=== PATIENT | female | born 1940 | race African-American/Black ===

== ENCOUNTER 2018-09-14 03:13 | Emergency (ER) | payer OTHER, BC ==
--- NOTE | 2018-09-14 03:48 | PDOC ---
History of Present Illness - General Chief Complaint: Blood Pressure Problem Stated Complaint: BLOOD PRESSURE PROBLEM Time Seen by Provider: 09/14/18 03:24 History Source: Patient Exam Limitations: No Limitations - History of Present Illness Initial Comments: 09/14/18 03:46 78F hx of htn, excema, panic attack, palpitations, presents with cc of hypertension. Pt had a mild headache and checked her bp was noted to be elevated so coame for evaluation. pt ntoes her headache was diffuse, and pressure like, was constant for about an hour and has since resolved. pt states when she feels this way, she knows its her bp. pt endorses some palitations when she was trying to sleep, but non currently. states she frequently feels these palpitatiosn at sleep. never has these when she is ambulating/exerting herself. no associated cp sob, n/v, diaphoresis, vision changes, numbnes/ tingling/weakness, neck pain, abd pain, back pain. PMD Dr Alonso Past History - Past Medical History Allergies/Adverse Reactions: Allergies Allergy/AdvReac Type Severity Reaction Status Date / Time No Known Allergies Allergy Verified 09/14/18 03:33 - Suicide/Smoking/Psychosocial Hx Smoking History: Never smoked Have you smoked in the past 12 months: No Information on smoking cessation initiated: No Hx Alcohol Use: No Drug/Substance Use Hx: No Review of Systems - Review of Systems Able to Perform ROS?: Yes Comments:: 09/14/18 04:15 Constitutional - no reported Fever, Chills, HEENT: no reported vision changes, sore throat Respiratory: no reported cough, sob, hemoptysis Cardiac: +palpitations (resolved) no reported chest pain, light headedness, leg swelling Abd/GI: no reported abd pain, nausea, vomiting, blood per rectum, melena, diarrhea : no reported dysuria, frequency, discharge Musculskelatal - no reported back pain, joint swelling skin - no reported bruising, erythema, rash neurological: + headache (resolved) no reported numbness, focal weakness, tingling, ataxia, hematologic: no reported easy bruising, easy bleeding *Physical Exam - Vital Signs Last Vital Signs Temp Pulse Resp BP Pulse Ox 97.1 F L 80 17 198/108 H 100 09/14/18 03:15 09/14/18 03:15 09/14/18 03:15 09/14/18 03:15 09/14/18 03:15 - Physical Exam Comments: 09/14/18 04:16 GENERAL: The patient is awake, alert, and fully oriented, Nontoxic - in no acute distress. HEAD: Normocephalic, atraumatic. EYES: extraocular movements intact, sclera anicteric, conjunctiva clear. ENT: Normal voice, Moist mucous membranes. NECK: Normal range of motion, supple LUNGS: Breath sounds equal, clear to auscultation bilaterally. No wheezes, no rhonchi, no rales. HEART: Regular rate and rhythm, normal S1 and S2 without murmur, rub or gallop. ABDOMEN: Soft, nontender, No guarding, no rebound. . No CVA tenderness EXTREMITIES: Normal range of motion, +1edema. No calf tenderness NEUROLOGICAL: No facial assymetry, Normal speech, PSYCH: Normal mood, normal affect. SKIN: Warm, Dry, normal turgor, Moderate Sedation - Procedure Monitoring Vital Signs: Procedure Monitoring Vital Signs Temperature 97.1 F L 09/14/18 03:15 Pulse Rate 80 09/14/18 03:15 Respiratory Rate 17 09/14/18 03:15 Blood Pressure 198/108 H 09/14/18 03:15 O2 Sat by Pulse Oximetry (%) 100 09/14/18 03:15 ED Treatment Course - LABORATORY CBC & Chemistry Diagram: 09/14/18 04:12 09/14/18 04:12 Medical Decision Making - Medical Decision Making 09/14/18 04:17 78-year-old female history of hypertension presenting with complaint of hypertension. Only had mild head pressure as well as palpitations but she was sleeping but is since resolved On exam the patient is no acute distress, her vitals are noted for hypertension Will check some basic labs will repeat her blood pressure persistently elevated will give the patient another extra dose of her medications Will reassess 09/14/18 05:45 pts labs reviewed unremarkable bp is significantly improved - 158/87 her headache has resolved will dc with pmd fu return precautions were discussed I discussed the physical exam findings, ancillary test results and final diagnoses with the patient. I answered all of the patient's questions. The patient was satisfied with the care received and felt comfortable with the discharge plan and treatment plan. The patient will call their primary care physician within 24 hours to arrange follow-up and will return to the Emergency Department with any new, persistent or worsening symptoms. *DC/Admit/Observation/Transfer Diagnosis at time of Disposition: Hypertension Qualifiers: Hypertension type: essential hypertension Qualified Code(s): I10 - Essential ( primary) hypertension - Discharge Dispostion Disposition: HOME Condition at time of disposition: Improved Decision to Admit order: No - Referrals Referrals: Donny Alonso MD [Primary Care Provider] - - Patient Instructions Printed Discharge Instructions: DI for High Blood Pressure Additional Instructions: Return to the emergency department immediately with ANY new, persistent or worsening symptoms. You MUST call and follow up with your doctor tomorrow for further evaluation of your symptoms. Results were discussed with you. Please make sure your doctor reviews the results of your emergency evaluation. If you had any xrays during your visit, it was read preliminarily by myself, a Radiologist will review it and if there are any additional findings we will call you. Print Language: PASHTO - Post Discharge Activity
[2018-09-14 03:52] VITALS: TEMP 97.1; BMI 24.9
[2018-09-14 03:59] VITALS: PULSE 73
[2018-09-14 04:28] LABS: BASO % 0.8 % (0-2.0); EOS % 1.5 % (0-4.5); HEMATOCRIT 37.8 % (32.4-45.2); LYMPH % 14.7 % (8-40); MCH 30.3 pg (25.7-33.7); MCHC 34.5 g/dl (32.0-36.0); MEAN CELL VOLUME 87.9 fl (80-96); MEAN PLT VOLUME 9.1 fl (7.5-11.1); MONO % 6.4 % (3.8-10.2); NEUT % 76.6 % (42.8-82.8); PLATELET COUNT 227 K/MM3 (134-434); RDW 14.6 % (11.6-15.6); WHITE BLOOD COUNT 4.3 K/mm3 (4.0-10.0)
[2018-09-14 04:33] LABS: URINE APPEARANCE CLEAR; URINE BILIRUBIN NEGATIVE (<2.0 mg/dL); URINE COLOR STRAW; URINE GLUCOSE (UA) NEGATIVE (NEGATIVE); URINE KETONE NEGATIVE (NEGATIVE); URINE LEUK ESTERASE TRACE (NEGATIVE); URINE NITRITE NEGATIVE (NEGATIVE); URINE PROTEIN NEGATIVE (NEGATIVE); URINE UROBILINOGEN NEGATIVE mg/dL (0.2-1.0)
[2018-09-14 04:47] LABS: URINE BACTERIA RARE /hpf (NONE SEEN); URINE HYALINE CAST 1 /lpf
[2018-09-14 05:00] LABS: ALBUMIN 3.7 g/dl (3.4-5.0); ALK PHOS 60 U/L (45-117); ANION GAP 8 MMOL/L (8-16); BILIRUBIN,TOTAL 0.5 mg/dL (0.2-1); BLOOD UREA NITROGEN 15 mg/dL (7-18); CALCIUM 8.7 mg/dL (8.5-10.1); CHLORIDE 104 mmol/L (98-107); CO2 28 mmol/L (21-32); CREATININE 0.8 mg/dL (0.55-1.3); GLUCOSE,RANDOM 88 mg/dL (74-106); POTASSIUM 3.4 mmol/L (3.5-5.1); SGOT/AST 22 U/L (15-37); SGPT/ALT 22 U/L (13-61); SODIUM 141 mmol/L (136-145); TOT PROT 6.7 g/dl (6.4-8.2)
[2018-09-14 05:46] VITALS: BP 156/87
--- NOTE | 2018-09-14 10:12 | EKG ---
Test Reason : Blood Pressure : / mmHG Vent. Rate : 069 BPM Atrial Rate : 069 BPM P-R Int : 176 ms QRS Dur : 082 ms QT Int : 446 ms P-R-T Axes : 070 010 031 degrees QTc Int : 477 ms NORMAL SINUS RHYTHM NORMAL ECG WHEN COMPARED WITH ECG OF 15-JAN-2009 19:48, NO SIGNIFICANT CHANGE WAS FOUND Confirmed by BEATRIZ HARMON MD ([id number]) on 09/14/2018 10:11:50 AM Referred By: Confirmed By:BEATRIZ HARMON MD
== END 2018-09-14 06:09 | disposition home or self-care (01) ==
LOC: JER 03:13
DX: I10 Essential (primary) hypertension (principal)
CPT/HCPCS: 36415; 80053; 81003; 81015; 85025; 93005; 93010; 99283-25

== ENCOUNTER 2019-01-06 11:42 | Inpatient (IN) | payer OTHER, BC ==
[2019-01-06] MEDS ORDERED: SODIUM CHLORIDE 1,000 ML IV SCH (12:15)
[2019-01-06 12:19] VITALS: BMI 24.3
--- NOTE | 2019-01-06 12:31 | PDOC ---
History of Present Illness - General Chief Complaint: Weakness Stated Complaint: WEAKNESS Time Seen by Provider: 01/06/19 12:13 History Source: Patient Exam Limitations: No Limitations - History of Present Illness Initial Comments: 01/06/19 12:30 Patient is 78F with history of htn here today complaining of right arm weakness that onset at 10am today. Initially stated that this started 3 days to 1 week ago, then stated that this weakness has been going off and on for the past week , suddenly starting at 10am today in the grocery store. Denies chest pain, shortness of breath, palpitations, fevers, chills, nausea, vomiting, and abdominal pain. Denies headache. Denies history of afib, prior strokes, prior heart issues, taking ac. NIH Stroke Scale - Last Known Well Date/Time & Onset Date Last Known Well: 01/06/19 Time Last Known Well: 10:00 - Initial Evaluation Level of consciousness: Alert Ask patient the month and their age: Answers both correctly Ask patient to open & close eyes; make fist and let go: Obeys both correctly Best gaze (horizontal eye movement): Normal Visual field testing: No visual field loss Facial paresis (Show teeth/raise eyebrows/close eyes tight): Minor paralysis ( flattened nasolabial fold, asymmetry on smiling) Motor Function: Left Arm: Normal Motor Function: Right Arm: Normal (extends arm 90 (or 45) degrees for 10 seconds without drift Motor Function: Left Leg: Normal (extends leg 30 degrees for 5 seconds without drift) Motor Function: Right Leg: Normal (extends leg 30 degrees for 5 seconds without drift) Limb Ataxia: No ataxia Sensory(Use pinprick test arms,legs,trunk,face/side to side): Normal Best language (Describe picture, name items, read sentences): No Aphasia Dysarthria (read several words): Normal articulation Extinction and Inattention: No abnormality - Total Score NIH Stroke Scale Score: 1 Past History - Past Medical History Allergies/Adverse Reactions: Allergies Allergy/AdvReac Type Severity Reaction Status Date / Time No Known Allergies Allergy Verified 01/06/19 13:24 Home Medications: Ambulatory Orders Metoprolol Succinate 12.5 mg PO DAILY 09/14/18 Quinapril HCl 10 mg PO DAILY 09/14/18 Triamterene/Hydrochlorothiazid [Triamterene-Hctz 37.5-25 mg Cp] 1 each PO AM COPD: No HTN: Yes - Immunization History Immunization Up to Date: Yes - Suicide/Smoking/Psychosocial Hx Smoking History: Never smoked Have you smoked in the past 12 months: No Hx Alcohol Use: No Drug/Substance Use Hx: No Substance Use Type: None Review of Systems - Review of Systems Able to Perform ROS?: Yes Comments:: 01/06/19 12:46 GENERAL/CONSTITUTIONAL: No fever or chills. + R arm weakness. HEAD, EYES, EARS, NOSE AND THROAT: No change in vision. No sore throat. CARDIOVASCULAR: No chest pain or shortness of breath RESPIRATORY: No cough, wheezing, or hemoptysis. GASTROINTESTINAL: No nausea, vomiting, diarrhea or constipation. GENITOURINARY: No dysuria, frequency, or change in urination. MUSCULOSKELETAL: No joint or muscle swelling or pain. No neck or back pain. SKIN: No rash NEUROLOGIC: No headache, vertigo, loss of consciousness, or change in strength/ sensation. HEMATOLOGIC/LYMPHATIC: No anemia, easy bleeding, or history of blood clots. ALLERGIC/IMMUNOLOGIC: No hives or skin allergy. *Physical Exam - Vital Signs Last Vital Signs Temp Pulse Resp BP Pulse Ox 97.5 F L 78 16 151/62 96 01/06/19 12:00 01/06/19 12:00 01/06/19 12:00 01/06/19 12:00 01/06/19 12:00 - Physical Exam Comments: 01/06/19 12:47 GENERAL: Awake, alert, and fully oriented, in no acute distress HEAD: No signs of trauma, normocephalic, atraumatic EYES: PERRLA, EOMI, sclera anicteric, conjunctiva clear ENT: Auricles normal inspection, hearing grossly normal, nares patent, oropharynx clear without exudates. Moist mucosa NECK: Normal ROM, supple, no lymphadenopathy, JVD, or masses LUNGS: No distress, speaks full sentences, clear to auscultation bilaterally HEART: Regular rate and rhythm, normal S1 and S2, no murmurs, rubs or gallops, peripheral pulses normal and equal bilaterally. ABDOMEN: Soft, nontender, normoactive bowel sounds. No guarding, no rebound. No masses EXTREMITIES: Normal inspection, Normal range of motion, no edema. No clubbing or cyanosis. NEUROLOGICAL: Mild left sided facial droop, otherwise Cranial nerves II through XII grossly intact. Normal speech, no focal sensorimotor deficits, NIHSS 1 SKIN: Warm, Dry, normal turgor, no rashes or lesions noted. Moderate Sedation - Procedure Monitoring Vital Signs: Procedure Monitoring Vital Signs Temperature 97.5 F L 01/06/19 12:00 Pulse Rate 78 01/06/19 12:00 Respiratory Rate 16 01/06/19 12:00 Blood Pressure 151/62 01/06/19 12:00 O2 Sat by Pulse Oximetry (%) 96 01/06/19 12:00 ED Treatment Course - LABORATORY CBC & Chemistry Diagram: 01/06/19 13:14 01/06/19 13:14 - RADIOLOGY Radiology Studies Ordered: Category Date Time Status HEAD CT (STROKE) [CT] Stat CT Scan 01/06/19 12:25 Ordered CHEST X-RAY PORTABLE* [RAD] Stat Radiology 01/06/19 12:14 Ordered Medical Decision Making - Medical Decision Making 01/06/19 12:29 Delay in stroke activation due to confusion in history. Patient stated initially that her arm had been feeling weak for the past 3 days to 1 week. Upon later questioning, patient states that she felt normal until 10am today at the store, when her R arm felt weak. Code mancilla activated at this time. NIHSS 1 for slight facial droop. 01/06/19 12:47 Patient is 78F with history of HTN here today with R arm weakness and L facial droop. Vitals normal and stable. Concerned that patient has had multiple TIAs. Code mancilla initiated after initial confusion in history above. Will do stroke workup, admit to tele. No tpa at this time because of NIHSS<5 01/06/19 13:05 CT head shows possibly chronic infarct, no bleed. EKG shows NSR with rate of 73. No st elevations/depressions. Normal axis. Normal intervals. No significant t wave abnormalities. CXR shows no infiltrate, no acute process. 01/06/19 14:03 CBC, CMP reassuring. Trop negative. Will admit to hospitalist. 01/06/19 14:11 Case d/w Dr Odonnell Case d/w Dr Wheatley *DC/Admit/Observation/Transfer Diagnosis at time of Disposition: CVA (cerebral vascular accident) - Discharge Dispostion Condition at time of disposition: Stable Decision to Admit order: Yes - Referrals - Patient Instructions - Post Discharge Activity
--- NOTE | 2019-01-06 12:35 | PDOC ---
Attending Attestation - Resident Resident Name: Tyrone Thomas - ED Attending Attestation I have performed the following: I have examined & evaluated the patient, The case was reviewed & discussed with the resident, I agree w/resident's findings & plan, Exceptions are as noted - Medical Decision Making 01/06/19 14:02 A portion of this note was documented by scribe services under my direction. I have reviewed the details of the note, within reason, and agree with the documentation with the following case summary and management plan written by me. Patient treated in the ED. Nursing notes are reviewed and incorporated into the medical decision-making. Vital signs reviewed. Peripheral IV access obtained by the nurse, laboratory studies are drawn and sent, reviewed and interpreted by myself. Vital Signs Temp Pulse Resp BP Pulse Ox 97.5 F L 78 16 151/62 96 01/06/19 12:00 01/06/19 12:00 01/06/19 12:00 01/06/19 12:00 01/06/19 12:00 78-year-old female with past medical history of hypertension presents with right arm intermittent numbness. Patient reports that the symptoms were on and off until it worsened this morning attending. Denies weakness. Denies chest pain or shortness of breath. She reports decreased sensation to the right arm. NIH stroke scale is 1. Patient is not a TPA candidate given low and actually scale and that the symptoms have been occurring for one week. Head CT demonstrates the following: CAT scan demonstrates possible small chronic left frontal cortical/subacute cortical infarct. Chest x-ray demonstrates cardiomegaly. The CAT scan findings appear to correspond to her symptoms. Patient will need to be admitted for further neuro workup for stroke. <Todd Louis - Last Filed: 01/06/19 14:09> - HPI HPI: 01/06/19 14:14 The patient is a 78 YOF with a PMH of HTN who presents with right arm numbness that worsened this morning. Patient states the right arm numbness is intermittent and denies any associated symptoms. Denies weakness, cp, sob, N/V/C/D, urinary symptoms, diaphoresis, lightheadedness, or dizziness. Allergies: NKDA Surgeries: None reported Social Hx: No reported alcohol, drug or cigarette use. - Physicial Exam PE: 01/06/19 14:10 ADULT EXAM GENERAL: Awake, alert, and fully oriented, in no acute distress HEAD: No signs of trauma EYES: PERRLA, EOMI, sclera anicteric, conjunctiva clear ENT: Auricles normal inspection, hearing grossly normal, nares patent. Moist mucosa NECK: Normal ROM, supple, JVD, or masses LUNGS: Breath sounds equal, clear to auscultation bilaterally. No wheezes, and no crackles HEART: Regular rate and rhythm, normal S1 and S2, no murmurs, rubs or gallops ABDOMEN: Soft, nontender. No guarding, no rebound. No masses EXTREMITIES: Normal range of motion, no edema. 5/5 strength in the upper and lower extremities. (+) subjective right arm has decreased sensation. No pronator drift. NEUROLOGICAL: Cranial nerves II through XII grossly intact. Normal speech. SKIN: Warm, Dry, normal turgor, no rashes or lesions noted. <Virginia Navarrete - Last Filed: 01/06/19 14:17> Heart Score/ECG Review #1 ECG reviewed & interpreted by me at: 12:15 01/06/19 12:34 NSR 73, occasional PAC, Q wave III, T wave flat III, V2, no std/cleopatra, QTC 442 [id number], normal axis, normal intervals <Todd Louis - Last Filed: 01/06/19 14:09> NIH Stroke Scale - Last Known Well Date/Time & Onset Date Last Known Well: 12/30/18 - Initial Evaluation Level of consciousness: Alert Ask patient the month and their age: Answers both correctly Ask patient to open & close eyes; make fist and let go: Obeys both correctly Best gaze (horizontal eye movement): Normal Visual field testing: No visual field loss Facial paresis (Show teeth/raise eyebrows/close eyes tight): Normal symmetrical movement Motor Function: Left Arm: Normal Motor Function: Right Arm: Normal (extends arm 90 (or 45) degrees for 10 seconds without drift Motor Function: Left Leg: Normal (extends leg 30 degrees for 5 seconds without drift) Motor Function: Right Leg: Normal (extends leg 30 degrees for 5 seconds without drift) Limb Ataxia: No ataxia Sensory(Use pinprick test arms,legs,trunk,face/side to side): Mild to moderate decrease in sensation Best language (Describe picture, name items, read sentences): No Aphasia Dysarthria (read several words): Normal articulation Extinction and Inattention: No abnormality - Total Score NIH Stroke Scale Score: 1 <Todd Louis - Last Filed: 01/06/19 14:09>
[2019-01-06] MEDS ORDERED: ASPIRIN 325 MG TABLET PO ONE (12:50)
[2019-01-06 13:30] LABS: BASO % 0.6 % (0-2.0); EOS % 0.7 % (0-4.5); HEMATOCRIT 40.4 % (32.4-45.2); LYMPH % 15.3 % (8-40); MCH 30.6 pg (25.7-33.7); MCHC 34.5 g/dl (32.0-36.0); MEAN CELL VOLUME 88.7 fl (80-96); MEAN PLT VOLUME 8.8 fl (7.5-11.1); MONO % 11.9 % (3.8-10.2); NEUT % 71.5 % (42.8-82.8); PLATELET COUNT 238 K/MM3 (134-434); RBC 4.56 M/mm3 (3.60-5.2); RDW 14.7 % (11.6-15.6); WHITE BLOOD COUNT 3.9 K/mm3 (4.0-10.0)
[2019-01-06] MEDS ORDERED: ASPIRIN 325 MG TABLET ONE (13:50)
[2019-01-06 13:59] LABS: ALBUMIN 4.1 g/dl (3.4-5.0); ALK PHOS 62 U/L (45-117); ANION GAP 9 MMOL/L (8-16); BILIRUBIN,TOTAL 0.4 mg/dL (0.2-1); BLOOD UREA NITROGEN 18 mg/dL (7-18); CALCIUM 9.1 mg/dL (8.5-10.1); CHLORIDE 97 mmol/L (98-107); CHOLESTEROL 172 mg/dL (50-200); CO2 26 mmol/L (21-32); GLUCOSE,RANDOM 83 mg/dL (74-106); HDL CHOLESTEROL 95 mg/dL (40-60); POTASSIUM 3.5 mmol/L (3.5-5.1); SGOT/AST 25 U/L (15-37); SGPT/ALT 22 U/L (13-61); SODIUM 132 mmol/L (136-145); TOT PROT 7.2 g/dl (6.4-8.2); TRIGLYCERIDES 68 mg/dL (0-150)
[2019-01-06 14:24] LABS: INR 1.08 (0.83-1.09); PROTHROMBIN TIME (PATIENT) 12.7 SEC (9.7-13.0)
[2019-01-06] MEDS ORDERED: ACETAMINOPHEN 325 MG TABLET (FP) PO PRN (16:08)
--- NOTE | 2019-01-06 16:11 | HP ---
Admitting History and Physical - Primary Care Physician PCP: Donny Alonso - Admission Chief Complaint: I was weak History of Present Illness: Ms Mccauley is a very pleasant 78 year old who comes in complaining of weakness. She is very unclear in her history and it is difficult to ascertain exactly when her symptoms started. She says she was at the store today and she developed R arm weakness, however she also said she was not feeling normal prior to this. She cannot explain exactly what she means by not feeling normal as she explains it as "I don't know, not feeling right" or "just not myself". She also cannot tell me how long this has been going on. However she says she was at the store and her R arm felt weak, numbness with tingling, and cold which is why she comes in. She also says that she felt woozy with this as well ( this also has been happening for an unknown amount of time), however the wooziness is not vertigo, lightheadedness, or pre-syncope. She denies fevers, chills, hearing/vision changes, confusion, chest pain or pressure, shortness of breath, nausea, vomiting, diarrhea, constipation, difficulty or pain on urination, or swelling. She says her arm feels stronger but still not normal. History Source: Patient Limitations to Obtaining History: Poor Historian - Past Medical History Cardiovascular: Yes: HTN - Past Surgical History Past Surgical History: Yes: None - Smoking History Smoking history: Never smoked Have you smoked in the past 12 months: No - Alcohol/Substance Use Hx Alcohol Use: No History of Substance Use: reports: None - Social History Usual Living Arrangement: Yes: Alone ADL: Independent History of Recent Travel: No Home Medications - Allergies Allergies/Adverse Reactions: Allergies Allergy/AdvReac Type Severity Reaction Status Date / Time No Known Allergies Allergy Verified 01/06/19 13:24 - Home Medications Home Medications: Ambulatory Orders Metoprolol Succinate 12.5 mg PO DAILY 09/14/18 Quinapril HCl 10 mg PO DAILY 09/14/18 Triamterene/Hydrochlorothiazid [Triamterene-Hctz 37.5-25 mg Cp] 1 each PO AM Family Disease History - Family Disease History Family Disease History: CA: Mother Review of Systems Findings/Remarks: Full review of systems obtained, as per HPI and otherwise negative Physical Examination Vital Signs: Vital Signs Temperature 36.4 C L 01/06/19 12:00 Pulse Rate 78 01/06/19 12:00 Respiratory Rate 16 01/06/19 12:00 Blood Pressure 151/62 01/06/19 12:00 O2 Sat by Pulse Oximetry (%) 100 01/06/19 12:30 Constitutional: Yes: Well Nourished, No Distress, Calm Eyes: Yes: Conjunctiva Clear, EOM Intact, PERRL HENT: Yes: Atraumatic, Normocephalic Cardiovascular: Yes: Regular Rate and Rhythm. No: Gallop, Murmur, Rub Respiratory: Yes: Regular, CTA Bilaterally. No: Rales, Rhonchi, Wheezes Gastrointestinal: Yes: Normal Bowel Sounds, Soft. No: Distention, Tenderness Extremities: Yes: WNL Edema: No Neurological: Yes: WNL ...Motor Strength: WNL Labs: CBC, BMP 01/06/19 13:14 01/06/19 13:14 Imaging - Results Chest X-ray: Report Reviewed, Image Reviewed Cat Scan: Report Reviewed Problem List - Problems (1) CVA (cerebral vascular accident) Assessment/Plan: -patient has old CVA on CT scan -however difficult to tease out if this is a TIA vs CVA -appreciate Dr Odonnell's assistance -admit to telemetry observation -ECHO -carotid ultrasound -PT consult -MRI brain without contrast -ESR, CRP, TSH, RPR, and B12 Code(s): I63.9 - CEREBRAL INFARCTION, UNSPECIFIED (2) Hypertension Assessment/Plan: -continue home regimen Code(s): I10 - ESSENTIAL (PRIMARY) HYPERTENSION Qualifiers: Hypertension type: essential hypertension Qualified Code(s): I10 - Essential (primary) hypertension
--- NOTE | 2019-01-06 16:27 | CONSULT ---
Consult - text type - Consultation Consultation Note: NEUROLOGY CONSULTATION is greatly appreciated: This 78 yo RH woman lives along. She has one daughter living in [place]. PMH sig for HTN on accupril, Triampterene, HCTZ, metoprolol. Followed by Dr. Donny Alonso. 6-9 mos of new, blackish, skin lesions which "come and go." Feels unwell and "not herself" over the last few weeks. Depressed. At 10 this AM, while shopping, she had new onset of right arm numbness and tingling and had to be helped home. CT of head (reviewed): Moderate, diffuse atrophy. Diffuse microvascular changes and a subacute left frontal lacunar infarct. STEPHANIA: No bruits. Cor reg. No evidence of external head trauma. Scattered, sl raised, irregular, black skin lesions, some with central ulcerations. NEURO: Awake, alert, cooperative. Ox December (beginning) 2019. Trump. Sl diff with reversals. Recalls 2 of 3 @ 3mins. CN II-XII: Normal Motor: No drift or tremor. Sl decreased TIKA's R. R foot rests everted. Normal reflexes except AJ's. Toes downgoing. Coord: No FTN dystaxia Sensory: Normal. Romberg neg. Gait: Unsteady with sl dragging right foot. IMP: 1. Mild B/L cerebral dysfunction (OMS, chronic) 2. Mild left cerebral accentuation c/w small stroke. 3. Depression SUGGEST: Admit telemetry bed. Notify Dr. Alonso MRI of brain (C-) Carotid duplex dopplers Cardiology and dermatology consults. PT for gait safety Check B12, TSH, RPR, ESR, CRP Thank you very much, Fernando Odonnell MD
[2019-01-06] MEDS: metoPROLOL SUCCINATE 25 MG TAB.SR.24H (FP) PO SCH (22:12)
--- NOTE | 2019-01-06 23:46 | EKG ---
Test Reason : Blood Pressure : / mmHG Vent. Rate : 073 BPM Atrial Rate : 073 BPM P-R Int : 172 ms QRS Dur : 084 ms QT Int : 402 ms P-R-T Axes : 068 009 041 degrees QTc Int : 442 ms SINUS RHYTHM WITH PREMATURE ATRIAL COMPLEXES POSSIBLE LEFT ATRIAL ENLARGEMENT SEPTAL INFARCT , AGE UNDETERMINED ABNORMAL ECG WHEN COMPARED WITH ECG OF 14-SEP-2018 04:56, PREMATURE ATRIAL COMPLEXES ARE NOW PRESENT SEPTAL INFARCT IS NOW PRESENT NONSPECIFIC T WAVE ABNORMALITY NOW EVIDENT IN ANTERIOR LEADS Confirmed by CHARLY GARSIA MD ([id number]) on 01/06/2019 11:45:53 PM Referred By: Confirmed By:CHARLY GARSIA MD
[2019-01-07 09:19] LABS: BASO % 0.6 % (0-2.0); HEMATOCRIT 38.6 % (32.4-45.2); HEMOGLOBIN 13.3 GM/dL (10.7-15.3); LYMPH % 20.1 % (8-40); MCH 30.3 pg (25.7-33.7); MCHC 34.4 g/dl (32.0-36.0); MEAN PLT VOLUME 8.7 fl (7.5-11.1); MONO % 10.2 % (3.8-10.2); NEUT % 68.1 % (42.8-82.8); PLATELET COUNT 244 K/MM3 (134-434); RBC 4.38 M/mm3 (3.60-5.2); RDW 14.6 % (11.6-15.6); WHITE BLOOD COUNT 3.5 K/mm3 (4.0-10.0)
[2019-01-07 10:02] LABS: ANION GAP 7 MMOL/L (8-16); BLOOD UREA NITROGEN 14 mg/dL (7-18); CALCIUM 9.1 mg/dL (8.5-10.1); CHLORIDE 103 mmol/L (98-107); CO2 29 mmol/L (21-32); CREATININE 0.8 mg/dL (0.55-1.3); GLUCOSE,RANDOM 78 mg/dL (74-106); MAGNESIUM 1.8 mg/dL (1.8-2.4); PHOSPHOROUS 3.2 mg/dL (2.5-4.9); SODIUM 139 mmol/L (136-145)
[2019-01-07] MEDS: QUINAPRIL HCL 10 MG TABLET (FP) PO SCH (10:23)
[2019-01-07] MEDS: ASPIRIN COATED 81 MG TABLET.EC PO SCH (10:23)
[2019-01-07] MEDS: metoPROLOL SUCCINATE 25 MG TAB.SR.24H (FP) PO SCH ×2 (10:23→23:05)
[2019-01-07] MEDS ORDERED: PT OWN MED DRAWER 7, Y5N ONE (11:03)
[2019-01-07] MEDS: TRIAMTERENE AND HCTZ - 37.5 MG/25 MG CAPSULE PO SCH (11:40)
--- NOTE | 2019-01-07 12:11 | ECHO ---
Name: JON FONTANEZ Exam:Adult Echocardiogram Study Date: 01/07/2019 09:12 AM Age: 78 yrs Reason For Study: TIA Height: 64 in Weight: 142 lb BSA: 1.7 m2 MMode/2D Measurements & Calculations IVSd: 1.0 cm Ao root diam: 3.5 cm LVIDd: 4.0 cm LA dimension: 2.3 cm LVIDs: 2.6 cm LVPWd: 0.85 cm EDV(Teich): 68.5 ml LVOT diam: 2.2 cm ESV(Teich): 24.3 ml Doppler Measurements & Calculations MV E max crow: 52.3 cm/sec Ao V2 max: 88.5 cm/sec MV A max crow: 62.7 cm/sec Ao max P.1 mmHg MV E/A: 0.83 Ao V2 mean: 61.8 cm/sec MV dec time: 0.24 sec Ao mean P.7 mmHg Ao V2 VTI: 19.2 cm LALA(I,D): 3.4 cm2 LALA(V,D): 3.4 cm2 LV V1 max P.7 mmHg SV(LVOT): 64.8 ml LV V1 mean P.3 mmHg LV V1 max: 81.4 cm/sec LV V1 mean: 53.5 cm/sec LV V1 VTI: 17.5 cm TR max crow: 236.7 cm/sec Med Peak E' Crow: 5.0 cm/sec TR max P.4 mmHg Med E/e': 10.4 Lat Peak E' Crow: 6.9 cm/sec Lat E/e': 7.6 Procedure A complete two-dimensional transthoracic echocardiogram was performed (2D, M-mode, Doppler and color flow Doppler). Left Ventricle The left ventricle is normal in size. Left ventricular systolic function is normal. Ejection Fraction = 65- 70%. Grade I diastolic dysfunction, (abnormal relaxation pattern). Ratio E/E'= 10. No regional wall m otion abnormalities noted. Right Ventricle The right ventricle is normal size. The right ventricular systolic function is normal. RV systolic TD I is 12 cm/s. Atria The left atrial size is normal. Right atrial size is normal. Mitral Valve The mitral valve is normal in structure and function. There is no mitral regurgitation noted. Tricuspid Valve The tricuspid valve is normal in structure and function. There is mild tricuspid regurgitation. Pulmo nary artery systolic pressure is at least 25 mmHg assuming RA pressure of 3 mmHg. Aortic Valve The aortic valve is normal in structure and function. Mild aortic regurgitation. Pulmonic Valve The pulmonic valve is not well visualized. Great Vessels The aortic root is normal size. Pericardium/Pleura There is no pericardial effusion. Interpretation Summary The left ventricle is normal in size. Left ventricular systolic function is normal. No regional wall motion abnormalities noted. Ejection Fraction = 65-70%. Grade I diastolic dysfunction, (abnormal relaxation pattern). Ratio E/E'= 10 The right ventricular systolic function is normal. The left atrial size is normal. Right atrial size is normal. There is mild tricuspid regurgitation. Pulmonary artery systolic pressure is at least 25 mmHg assuming RA pressure of 3 mmHg Mild aortic regurgitation. There is no pericardial effusion. Previous study is not available for comparison Prashanth Helton MD 01/07/2019 12:10 PM
--- NOTE | 2019-01-07 13:36 | PN ---
Progress Note (short form) - Note Progress Note: NEUROLOGY PROGRESS: Events reviewed and discussed with staff and NICK Wright. Still reporting depression as she lives at home alone. ESR 2 CRP 0.8 B12 761 TSH 2.05 RPR nonreactive Carotid Duplex Doppler (reviewed): Scattered intimal plaque without sig. hemodynamic changes (Larger plaque at the origin of the EXTernal carotids) STEPHANIA: Both legs with mild edema. NEURO: Awake, alert, cooperative. Ox January 07, 2019 Trump-> PMUT. Recalls 2 of 3 @ 3mins. CN II-XII: Normal Motor: Min R drift. Sl decreased TIKA's R. Normal reflexes except AJ' s. Toes downgoing. No FTN dystaxia Sensory: Normal. Romberg neg. Gait: Ambulating independently, can walk on heels and toes without difficulty. IMP: 1. Mild B/L cerebral dysfunction (OMS, chronic - studies for OMS negative) 2. Mild left cerebral accentuation c/w small stroke. 3. Depression SUGGEST: Await MRI of brain (C-) Agree with cardio and telemetry Please consider antidepressant Rx (perhaps citalopram 10 mg qd) Continue PT Pt may require home health services Thank you very much, Fernando Odonnell MD
--- NOTE | 2019-01-07 17:11 | PN ---
Progress Note, Physician Chief Complaint: Ms Giordano is without complaint. No cp, sob, n/v. Says her R arm feels back to normal. - Current Medication List Current Medications: Active Medications Acetaminophen (Tylenol -) 650 mg PO Q4H PRN PRN Reason: FEVER Aspirin (Ecotrin -) 81 mg PO DAILY [facility] Last Admin: 01/07/19 10:23 Dose: 81 mg Metoprolol Succinate (Toprol Xl -) 12.5 mg PO BID [facility] Last Admin: 01/07/19 10:23 Dose: 12.5 mg Quinapril HCl (Accupril -) 10 mg PO DAILY [facility] Last Admin: 01/07/19 10:23 Dose: 10 mg Triamterene/HCTZ (Dyazide 25/37.5mg) 1 cap PO DAILY [facility] Last Admin: 01/07/19 11:40 Dose: 1 cap - Objective Vital Signs: Vital Signs Temperature 36.3 C L 01/07/19 14:33 Pulse Rate 83 01/07/19 14:33 Respiratory Rate 16 01/07/19 14:33 Blood Pressure 153/85 01/07/19 14:33 O2 Sat by Pulse Oximetry (%) 97 01/07/19 10:27 Constitutional: Yes: Well Nourished, No Distress, Calm Cardiovascular: Yes: Regular Rate and Rhythm. No: Gallop, Murmur, Rub Respiratory: Yes: Regular, CTA Bilaterally. No: Rales, Rhonchi, Wheezes Gastrointestinal: Yes: Normal Bowel Sounds, Soft. No: Distention, Tenderness Extremities: Yes: WNL Edema: No Labs: CBC, BMP 01/07/19 08:39 01/07/19 08:39 INR, PTT INR 1.08 (0.83-1.09) 01/06/19 13:14 Problem List - Problems (1) CVA (cerebral vascular accident) Code(s): I63.9 - CEREBRAL INFARCTION, UNSPECIFIED (2) Hypertension Code(s): I10 - ESSENTIAL (PRIMARY) HYPERTENSION Qualifiers: Hypertension type: essential hypertension Qualified Code(s): I10 - Essential (primary) hypertension Assessment/Plan (1) CVA (cerebral vascular accident) Assessment/Plan: -neurology following -ECHO reviewed -carotid ultrasound and MRI pending -work up otherwise negative -case d/w PT -possible discharge tomorrow pending completion of work up Code(s): I63.9 - CEREBRAL INFARCTION, UNSPECIFIED (2) Hypertension Assessment/Plan: -continue home regimen Code(s): I10 - ESSENTIAL (PRIMARY) HYPERTENSION Qualifiers: Hypertension type: essential hypertension Qualified Code(s): I10 - Essential (primary) hypertension
[2019-01-08 07:20] LABS: BASO % 0.6 % (0-2.0); EOS % 2.5 % (0-4.5); HEMATOCRIT 35.8 % (32.4-45.2); HEMOGLOBIN 12.3 GM/dL (10.7-15.3); LYMPH % 24.8 % (8-40); MCH 30.2 pg (25.7-33.7); MCHC 34.3 g/dl (32.0-36.0); MEAN CELL VOLUME 88.1 fl (80-96); MEAN PLT VOLUME 8.8 fl (7.5-11.1); MONO % 11.8 % (3.8-10.2); NEUT % 60.3 % (42.8-82.8); PLATELET COUNT 215 K/MM3 (134-434); RBC 4.06 M/mm3 (3.60-5.2); RDW 14.8 % (11.6-15.6); WHITE BLOOD COUNT 2.8 K/mm3 (4.0-10.0)
[2019-01-08 07:37] LABS: ANION GAP 6 MMOL/L (8-16); BLOOD UREA NITROGEN 14 mg/dL (7-18); CALCIUM 8.5 mg/dL (8.5-10.1); CHLORIDE 101 mmol/L (98-107); CO2 30 mmol/L (21-32); CREATININE 0.7 mg/dL (0.55-1.3); GLUCOSE,RANDOM 86 mg/dL (74-106); MAGNESIUM 2.3 mg/dL (1.8-2.4); PHOSPHOROUS 3.7 mg/dL (2.5-4.9); POTASSIUM 3.7 mmol/L (3.5-5.1); SODIUM 136 mmol/L (136-145)
[2019-01-08] MEDS ORDERED: PT OWN MED DRAWER 7, Y5N ONE (09:01)
[2019-01-08] MEDS: QUINAPRIL HCL 10 MG TABLET (FP) PO SCH (09:40)
[2019-01-08] MEDS: TRIAMTERENE AND HCTZ - 37.5 MG/25 MG CAPSULE PO SCH (09:41)
[2019-01-08] MEDS: metoPROLOL SUCCINATE 25 MG TAB.SR.24H (FP) PO SCH ×2 (09:41→21:27)
[2019-01-08] MEDS: ASPIRIN COATED 81 MG TABLET.EC PO SCH (09:41)
--- NOTE | 2019-01-08 16:08 | PN ---
Progress Note, Physician Chief Complaint: Ms Giordano is feeling well. She denies cp, sob, n/v, weakness, or other concerns. - Current Medication List Current Medications: Active Medications Acetaminophen (Tylenol -) 650 mg PO Q4H PRN PRN Reason: FEVER Aspirin (Ecotrin -) 81 mg PO DAILY [facility] Last Admin: 01/08/19 09:41 Dose: 81 mg Metoprolol Succinate (Toprol Xl -) 12.5 mg PO BID [facility] Last Admin: 01/08/19 09:41 Dose: 12.5 mg Quinapril HCl (Accupril -) 10 mg PO DAILY [facility] Last Admin: 01/08/19 09:40 Dose: 10 mg Triamterene/HCTZ (Dyazide 25/37.5mg) 1 cap PO DAILY [facility] Last Admin: 01/08/19 09:41 Dose: 1 cap - Objective Vital Signs: Vital Signs Temperature 36.8 C 01/08/19 14:08 Pulse Rate 75 01/08/19 14:08 Respiratory Rate 16 01/08/19 14:08 Blood Pressure 118/70 01/08/19 14:08 O2 Sat by Pulse Oximetry (%) 94 L 01/08/19 09:00 Constitutional: Yes: Well Nourished, No Distress, Calm Cardiovascular: Yes: Regular Rate and Rhythm. No: Gallop, Murmur, Rub Respiratory: Yes: Regular, CTA Bilaterally. No: Rales, Rhonchi, Wheezes Gastrointestinal: Yes: Normal Bowel Sounds, Soft. No: Distention, Tenderness Extremities: Yes: WNL Edema: No Labs: CBC, BMP 01/08/19 06:30 01/08/19 06:30 INR, PTT INR 1.08 (0.83-1.09) 01/06/19 13:14 Problem List - Problems (1) CVA (cerebral vascular accident) Code(s): I63.9 - CEREBRAL INFARCTION, UNSPECIFIED (2) Hypertension Code(s): I10 - ESSENTIAL (PRIMARY) HYPERTENSION Qualifiers: Hypertension type: essential hypertension Qualified Code(s): I10 - Essential (primary) hypertension Assessment/Plan (1) CVA (cerebral vascular accident) Assessment/Plan: -MRI reviewed and showing acute CVA -carotid ultrasound noted -vascular surgery consulted to review and will discuss if any intervention is needed -will have neurology see prior to discharge now MRI confirms CVA -set up home services -continue aspirin -lipid profile at goal, ? if would benefit from statin as well -plan for discharge tomorrow Code(s): I63.9 - CEREBRAL INFARCTION, UNSPECIFIED (2) Hypertension Assessment/Plan: -continue home regimen Code(s): I10 - ESSENTIAL (PRIMARY) HYPERTENSION Qualifiers: Hypertension type: essential hypertension Qualified Code(s): I10 - Essential (primary) hypertension
--- NOTE | 2019-01-09 09:27 | DS ---
Physical Exam: SUBJECTIVE: Patient seen and examined, no complaints. OBJECTIVE: Vital Signs Period Temp Pulse Resp BP Sys/Garcia Pulse Ox Last 24 Hr 97.9 F-98.3 F 69-82 16-20 110-147/57-85 100 PHYSICAL EXAM GENERAL: The patient is awake, alert, and fully oriented, in no acute distress. HEAD: Normal with no signs of trauma. EYES: PERRL, extraocular movements intact, sclera anicteric, conjunctiva clear. ENT: Ears normal, nares patent, oropharynx clear without exudates, moist mucous membranes. NECK: Trachea midline, full range of motion, supple. LUNGS: Breath sounds equal, clear to auscultation bilaterally, no wheezes, no crackles, no accessory muscle use. HEART: Regular rate and rhythm, S1, S2 without murmur, rub or gallop. ABDOMEN: Soft, nontender, nondistended, normoactive bowel sounds, no guarding, no rebound, no hepatosplenomegaly, no masses. EXTREMITIES: 2+ pulses, warm, well-perfused, no edema. NEUROLOGICAL: AAOx3, power 5/5, no pronator drift, facial symmetry, tongue midlinen, EOMI, sensation symmetric to touch bilaterally, Cranial nerves II through XII grossly intact. Normal speech, gait not observed. PSYCH: Normal mood, normal affect. SKIN: Warm, dry, normal turgor, no rashes or lesions noted. LABS Laboratory Results - last 24 hr 01/09/19 05:20 Troponin I < 0.02 Laboratory Tests 01/06/19 01/06/19 01/06/19 13:14 13:14 13:14 WBC 3.9 L RBC 4.56 Hgb 14.0 Hct 40.4 MCV 88.7 MCH 30.6 MCHC 34.5 RDW 14.7 Plt Count 238 MPV 8.8 Absolute Neuts (auto) 2.8 Neutrophils % 71.5 Lymphocytes % 15.3 Monocytes % 11.9 H D Eosinophils % 0.7 Basophils % 0.6 Nucleated RBC % 0 ESR PT with INR 12.70 INR 1.08 Sodium 132 L Potassium 3.5 Chloride 97 L Carbon Dioxide 26 Anion Gap 9 BUN 18 Creatinine 1.0 Creat Clearance w eGFR 53.48 Random Glucose 83 Calcium 9.1 Phosphorus Magnesium Total Bilirubin 0.4 AST 25 ALT 22 Alkaline Phosphatase 62 Creatine Kinase 97 Troponin I < 0.02 C-Reactive Protein Total Protein 7.2 Albumin 4.1 Triglycerides 68 Cholesterol 172 Total LDL Cholesterol 67 HDL Cholesterol 95 H Vitamin B12 TSH RPR Titer 01/07/19 01/07/19 01/07/19 08:39 08:39 08:39 WBC 3.5 L RBC 4.38 Hgb 13.3 Hct 38.6 MCV 88.0 MCH 30.3 MCHC 34.4 RDW 14.6 Plt Count 244 MPV 8.7 Absolute Neuts (auto) 2.4 Neutrophils % 68.1 Lymphocytes % 20.1 D Monocytes % 10.2 Eosinophils % 1.0 Basophils % 0.6 Nucleated RBC % 0 ESR PT with INR INR Sodium 139 Potassium 4.0 Chloride 103 Carbon Dioxide 29 Anion Gap 7 L BUN 14 Creatinine 0.8 Creat Clearance w eGFR 69.19 Random Glucose 78 Calcium 9.1 Phosphorus 3.2 Magnesium 1.8 Total Bilirubin AST ALT Alkaline Phosphatase Creatine Kinase Troponin I C-Reactive Protein 0.8 H Total Protein Albumin Triglycerides Cholesterol Total LDL Cholesterol HDL Cholesterol Vitamin B12 761 TSH 2.05 RPR Titer 01/07/19 01/07/19 01/08/19 08:39 08:39 06:30 WBC 2.8 L RBC 4.06 Hgb 12.3 Hct 35.8 MCV 88.1 MCH 30.2 MCHC 34.3 RDW 14.8 Plt Count 215 MPV 8.8 Absolute Neuts (auto) 1.7 Neutrophils % 60.3 Lymphocytes % 24.8 D Monocytes % 11.8 H Eosinophils % 2.5 D Basophils % 0.6 Nucleated RBC % 0 ESR 2 PT with INR INR Sodium Potassium Chloride Carbon Dioxide Anion Gap BUN Creatinine Creat Clearance w eGFR Random Glucose Calcium Phosphorus Magnesium Total Bilirubin AST ALT Alkaline Phosphatase Creatine Kinase Troponin I C-Reactive Protein Total Protein Albumin Triglycerides Cholesterol Total LDL Cholesterol HDL Cholesterol Vitamin B12 TSH RPR Titer Nonreactive 01/08/19 01/09/19 06:30 05:20 WBC RBC Hgb Hct MCV MCH MCHC RDW Plt Count MPV Absolute Neuts (auto) Neutrophils % Lymphocytes % Monocytes % Eosinophils % Basophils % Nucleated RBC % ESR PT with INR INR Sodium 136 Potassium 3.7 Chloride 101 Carbon Dioxide 30 Anion Gap 6 L BUN 14 Creatinine 0.7 Creat Clearance w eGFR 80.72 Random Glucose 86 Calcium 8.5 Phosphorus 3.7 Magnesium 2.3 Total Bilirubin AST ALT Alkaline Phosphatase Creatine Kinase Troponin I < 0.02 C-Reactive Protein Total Protein Albumin Triglycerides Cholesterol Total LDL Cholesterol HDL Cholesterol Vitamin B12 TSH RPR Titer CT head - Clinical information: evaluate for stroke no intracranial hemorrhage is seen. There is no definite acute infarct within the limitations of CT. Follow -up imaging as clinically indicated. A possible small chronic left frontal cortical/subcortical infarct is noted. There is no extra-axial fluid collection. No gross mass lesion is seen. Involutional changes are noted with mild ventricular dilatation. The calvarium appears intact. Impression: Possible small chronic left frontal cortical/subcortical infarct. MRI brain - Findings. The intracranial contents are shown well from the epps magnum to the cranial vertex. Nonhemorrhagic subacute cortical infarct infarct is seen in the region of the left precentral gyrus, associated with white matter ischemic changes in the adjacent left frontal lobe centrum semiovale with restrictive changes on diffusion weighted images, with corresponding low signal intensity in in ADC, increased signal intensity in on T2, FLAIR WI. Chronic white matter microangiopathic ischemic changes, gliosis left superior frontal gyrus without the restrictive changes on diffusion weighted images. Approximately 8.3 x 7.5 mm extra-axial lesion encroaching on the sulcus at the level of the right inferior frontal gyrus likely represents an incidental small meningioma. Contrast-enhanced MRI may be considered for further evaluation. Loss of volume of the brain parenchyma with age-related involutional changes. There is no evidence of hydrocephalus. There is no evidence hemorrhage, mass effect, midline shift, intra or extra axial collections. There is no mass effect , midline shift, intra or extra axial collections. Normal corpus callosum is noted. The major caliber vascular structures including the pilot station of Gipson and peripheral dural venous sinuses show normal signal characteristics. No abnormality seen in the pontomedullary junction region. No evidence of tonsillar ectopia Normal signal intensity of the calvarium. Impression. Nonhemorrhagic subacute cortical infarct infarct is seen in the region of the left precentral gyrus, associated with white matter ischemic changes in the adjacent left frontal lobe centrum semiovale with restrictive changes on diffusion weighted images, with corresponding low signal intensity in in ADC, increased signal intensity in on T2, FLAIR WI. Chronic white matter microangiopathic ischemic changes, gliosis left superior frontal gyrus without the restrictive changes on diffusion weighted images. Approximately 8.3 x 7.5 mm extra-axial lesion encroaching on the sulcus at the level of the right inferior frontal gyrus likely represents an incidental small meningioma. Contrast-enhanced MRI may be considered for further evaluation. Carotid duplex: EXAM#: TYPE/EXAM: RESULT: [id number] US/CAROTID COLOR FLOW DOPP US TIA versus stroke Bilateral carotid Doppler ultrasound Grayscale, pulsed Doppler and color Doppler interrogation of both carotid and both vertebral arteries was performed. The right common carotid, internal and external external carotid artery were identified with a peak systolic velocity of 85, 70 and 60 cm/sec, respectively. The left common carotid, internal and external carotid artery were identified with a peak systolic velocity of 110, 77 and 70 cm/sec, respectively. Flow in the physiologic direction was documented in both vertebral arteries. Impression: Intimal thickening and small plaques at the common carotid bifurcation/bulb, bilaterally without evidence of hemodynamically significant stenosis, bilaterally. There is also is moderate size plaque at the origin of the right and left external carotid artery HOSPITAL COURSE: Date of Admission:01/07/19 Date of Discharge: 01/09/19 Minutes to complete discharge: 40 Discharge Summary Reason For Visit: CEREBROVASCULAR ACCIDENT (CVA) Current Active Problems CVA (cerebral vascular accident) (Acute) Hospital Course: 78 yof with PMHx of HTN, poor historian, admitted with vague complaints of right arm weakness, tingling and numbness. She had CT head on admission with results as above. Neurology was consulted and she had MRI brain which showed subacute cortical infarct as above. She was started on ASA and plavix per neurology Dr. Odonnell's recommendations and resumed on her home anti-HTN medications with no concerns. Her symptoms resolved during her stay. her telemetry showed PVCs but no concerning arrhythmia. Her carotid duplex was with small plaques at carotid bifurcation/bulb with no hemodynamically significant stenosis and moderate plaques in external carotid artery. Vacular surgery was consulted with Dr. Monreal and no additional intervention was recommended. She was evaluated by physical therapy and arranged for home services She will be discharged in stable condition. Condition: Stable - Instructions Diet, Activity, Other Instructions: You were found with a stroke. You were seen by neurologist and started on new medications Aspirin and Plavix. MEDICATION: New medications as follows: ASA 81 mg daily Plavix 75 mg daily Continue home BP medications as before FOLLOW UP: With Dr. Alonso in 1 week With Neurologist in 1 week With Audit Mgr in 1-2 weeks (please discuss outpatient Holter monitoring and additional testing) With vascular surgeon to monitor Carotid stenosis (Every 6 months) Please note that you new medications Aspirin and plavix are blood thinners. Please monitor for any dark or bloody stools, cuts and scrapes that do not stop bleeding and notify your doctor or come to ED right away in the case. If you notice any new weakness, numbness, speech disturbances, dark or bloody stools, bleeding that does not stop, please call 911 or come to the ED. Referrals: Fernando Odonnell MD [Staff Physician] - Shivam Quesada MD [Staff Physician] - Donny Alonso MD [Primary Care Provider] - Disposition: VNS/HOME HEALTH CARE - Home Medications Comprehensive Discharge Medication List: Ambulatory Orders Metoprolol Succinate 12.5 mg PO DAILY 09/14/18 Quinapril HCl 10 mg PO DAILY 09/14/18 Triamterene/Hydrochlorothiazid [Triamterene-Hctz 37.5-25 mg Cp] 1 each PO AM Aspirin Coated [Ecotrin -] 81 mg PO DAILY 30 Days #30 tablet.ec 01/09/19 Clopidogrel Bisulfate [Plavix -] 75 mg PO DAILY 30 Days #30 tablet 01/09/19 This patient is new to me today: Yes Date on this admission: 01/09/19 Emergency Visit: Yes ED Registration Date: 01/07/19 Care time: The patient presented to the Emergency Department on the above date and was hospitalized for further evaluation of their emergent condition. Critical Care patient: No - Discharge Referral Referred to [facility] Med P.C.: No
--- NOTE | 2019-01-09 09:54 | PN ---
Progress Note (short form) - Note Progress Note: Surgery Evaluation for carotid stenosis. Imaging reviewed by Dr Monreal- Carotid ultrasound is WNL. Dr Monreal spoke directly to medical team regarding findings Patient cleared for Discharge. Follow up with Dr Monreal as outpatient PRN
[2019-01-09] MEDS ORDERED: CLOPIDOGREL BISULFATE 75 MG TABLET (FP) PO SCH (10:00)
--- NOTE | 2019-01-09 10:40 | EKG ---
Test Reason : Blood Pressure : / mmHG Vent. Rate : 071 BPM Atrial Rate : 071 BPM P-R Int : 174 ms QRS Dur : 082 ms QT Int : 412 ms P-R-T Axes : 078 038 059 degrees QTc Int : 447 ms NORMAL SINUS RHYTHM NORMAL ECG WHEN COMPARED WITH ECG OF 06-JAN-2019 12:14, PREMATURE ATRIAL COMPLEXES ARE NO LONGER PRESENT CRITERIA FOR SEPTAL INFARCT ARE NO LONGER PRESENT Confirmed by MAURI JOE, JOSÉ MIGUEL ([id number]) on 01/09/2019 10:40:04 AM Referred By: Confirmed By:JOSÉ MIGUEL DOTSON MD
[2019-01-09] MEDS: ASPIRIN COATED 81 MG TABLET.EC PO SCH (11:07)
[2019-01-09] MEDS: TRIAMTERENE AND HCTZ - 37.5 MG/25 MG CAPSULE PO SCH (11:08)
[2019-01-09] MEDS: metoPROLOL SUCCINATE 25 MG TAB.SR.24H (FP) PO SCH (11:08)
[2019-01-09] MEDS: QUINAPRIL HCL 10 MG TABLET (FP) PO SCH (11:09)
[2019-01-09 12:08] VITALS: BP 146/60; PULSE 81; TEMP 98
== END 2019-01-09 13:12 | disposition home health service (06) | DRG 65 ==
LOC: JER 11:42 → JERBED 14:47 → J4S 01-07 06:07 → OBSVTOIN 01-07 10:26
PROVIDERS: ADMIT Internal Medicine; ATTEND Hospitalist
DX: I63.9 Cerebral infarction, unspecified (principal); G81.91 Hemiplegia, unspecified affecting right dominant side; I10 Essential (primary) hypertension; F32.9 Major depressive disorder, single episode, unspecified; R29.701 NIHSS score 1; I69.392 Facial weakness following cerebral infarction
CPT/HCPCS: 36415; 70450-TC; 70551-TC; 71045-TC-FY; 80048; 80053; 82465; 82550; 82607; 83718; 83721; 83735; 84100; 84443; 84478; 84484; 85025; 85610; 85651; 86140; 86593; 93005; 93010; 93306-TC; 93880-TC; 97116-GP; 97161-GP; 99285-25; G0378; J7030

== ENCOUNTER 2021-01-17 05:03 | Emergency (ER) | payer OTHER, BC ==
[2021-01-17 05:37] VITALS: BMI 24.5
[2021-01-17 07:23] LABS: BASO % 0.4 % (0-2.0); EOS % 0.8 % (0-4.5); HEMATOCRIT 31.8 % (32.4-45.2); HEMOGLOBIN 10.7 GM/dL (10.7-15.3); LYMPH % 19.7 % (8-40); MCHC 33.7 g/dl (32.0-36.0); MEAN CELL VOLUME 88.9 fl (80-96); MEAN PLT VOLUME 9.3 fl (7.5-11.1); MONO % 8.4 % (3.8-10.2); NEUT % 70.7 % (42.8-82.8); PLATELET COUNT 77 K/MM3 (134-434); RBC 3.57 M/mm3 (3.60-5.2); RDW 14.7 % (11.6-15.6); WHITE BLOOD COUNT 3.2 K/mm3 (4.0-10.0)
[2021-01-17 07:34] LABS: CHLORIDE 98 mmol/L (98-107); POTASSIUM 3.5 mmol/L (3.5-5.1); SODIUM 133 mmol/L (136-145)
[2021-01-17 07:36] LABS: ANION GAP 6 MMOL/L (8-16); CO2 30 mmol/L (21-32)
[2021-01-17 07:37] LABS: CALCIUM 9.5 mg/dL (8.5-10.1)
[2021-01-17 07:38] LABS: BLOOD UREA NITROGEN 14.4 mg/dL (7-18); GLUCOSE,RANDOM 91 mg/dL (74-106)
[2021-01-17 07:41] LABS: CREATININE 0.8 mg/dL (0.55-1.3); SGOT/AST 22 U/L (15-37); SGPT/ALT 20 U/L (13-61)
[2021-01-17 07:42] LABS: BILIRUBIN,TOTAL 0.7 mg/dL (0.2-1)
[2021-01-17 07:43] LABS: ALK PHOS 55 U/L (45-117)
[2021-01-17 08:47] LABS: EPI CELLS 1 /uL (0-25.1); HYALINE CASTS 0 /uL (0-3.1); URINE APPEARANCE CLOUDY; URINE BACTERIA >9,000 /uL (0-1359); URINE BILIRUBIN NEGATIVE (NEGATIVE); URINE COLOR YELLOW; URINE GLUCOSE (UA) NEGATIVE (NEGATIVE); URINE KETONE NEGATIVE (NEGATIVE); URINE LEUK ESTERASE 3+ (NEGATIVE); URINE NITRITE NEGATIVE (NEGATIVE); URINE PROTEIN NEGATIVE (NEGATIVE); URINE RBC 13 /uL (0-23.9); URINE UROBILINOGEN 0.2 mg/dL (0.2-1.0); URINE WBC 1115 /uL (0-25.8)
[2021-01-17] MEDS ORDERED: SULFAMETHOXAZOLE/TRIMETHOPRIM 800MG/160MG D.S. TABLET PO ONE (09:01)
[2021-01-17] MEDS ORDERED: SULFAMETHOXAZOLE/TRIMETHOPRIM 800MG/160MG D.S. TABLET ONE (09:31)
[2021-01-17 09:39] VITALS: BP 129/58; PULSE 79
== END 2021-01-17 09:39 | disposition home or self-care (01) ==
LOC: JER 05:03
DX: R30.0 Dysuria (principal); D69.6 Thrombocytopenia, unspecified
CPT/HCPCS: 36415; 80053; 81003; 84484; 85025; 87086; 87186; 93005; 93010; 99284-25

== ENCOUNTER 2024-05-21 17:21 | Inpatient (IN) | payer OTHER, BC ==
[2024-05-21 19:31] LABS: EOS % 2.7 % (0-4.5); HEMATOCRIT 39.8 % (32.4-45.2); HEMOGLOBIN 12.9 GM/dL (10.7-15.3); LYMPH % 22.5 % (8-40); MCH 27.6 pg (25.7-33.7); MCHC 32.3 g/dl (32.0-36.0); MEAN CELL VOLUME 85.3 fl (80-96); MONO % 8.7 % (3.8-10.2); NEUT % 65.1 % (42.8-82.8); PLATELET COUNT 261 10^3/uL (134-434); RBC 4.66 M/mm3 (3.60-5.2); RDW 16.7 % (11.6-15.6); WHITE BLOOD COUNT 4.8 K/mm3 (4.0-10.0)
[2024-05-21 19:49] LABS: CHLORIDE 108 mmol/L (98-107); SODIUM 140 mmol/L (136-145)
[2024-05-21 19:51] LABS: ALBUMIN 3.2 g/dl (3.4-5.0); BLOOD UREA NITROGEN 16.6 mg/dL (7-18); CO2 28 mmol/L (21-32); MAGNESIUM 2.2 mg/dL (1.8-2.4)
[2024-05-21 19:52] LABS: GLUCOSE,RANDOM 77 mg/dL (74-106)
[2024-05-21 19:55] LABS: CREATININE 0.9 mg/dL (0.55-1.3)
[2024-05-21 19:56] LABS: ANION GAP 4 mmol/L (4-13); BILIRUBIN,TOTAL 0.4 mg/dL (0.2-1); POTASSIUM 7.1 mmol/L (3.5-5.1); SGOT/AST 58 U/L (15-37); SGPT/ALT 28 U/L (13-61); TOT PROT 7.1 g/dl (6.4-8.2)
[2024-05-21 19:57] LABS: ALK PHOS 125 U/L (45-117)
[2024-05-21 21:56] LABS: EPI CELLS 1 /uL (0-25.1); HYALINE CASTS 0 /uL (0-3.1); URINE APPEARANCE CLEAR; URINE BACTERIA >9,000 /uL (0-1359); URINE BILIRUBIN NEGATIVE (NEGATIVE); URINE COLOR YELLOW; URINE GLUCOSE (UA) NEGATIVE (NEGATIVE); URINE KETONE NEGATIVE (NEGATIVE); URINE LEUK ESTERASE 3+ (NEGATIVE); URINE NITRITE POSITIVE (NEGATIVE); URINE PROTEIN NEGATIVE (NEGATIVE); URINE RBC 10 /uL (0-23.9); URINE UROBILINOGEN 0.2 mg/dL (0.2-1.0); URINE WBC 404 /uL (0-25.8)
[2024-05-21 22:11] LABS: POTASSIUM 4.3 mmol/L (3.5-5.1)
[2024-05-21 22:12] LABS: CALCIUM 9.2 mg/dL (8.5-10.1)
[2024-05-21 22:13] LABS: BLOOD UREA NITROGEN 15.8 mg/dL (7-18)
[2024-05-21 22:16] LABS: CREATININE 0.8 mg/dL (0.55-1.3)
[2024-05-21] MEDS ORDERED: CEFTRIAXONE 1 GM/50 ML BAG ONE (22:37)
[2024-05-21] MEDS: CEFTRIAXONE 1 GM in DEXTROSE 5%-WATER - 100 ML IVPB ONE (22:48)
[2024-05-21] MEDS ORDERED: ACETAMINOPHEN 500 MG TABLET (FP) PO PRN (22:58)
[2024-05-21] MEDS ORDERED: LACTATED RINGERS SOLUTION 1,000 ML/1,000 ML INFUS.BAG IV SCH (23:00)
[2024-05-22] MEDS ORDERED: PANTOPRAZOLE 40 MG TABLET PO ONE (01:09)
[2024-05-22] MEDS: PANTOPRAZOLE 40 MG TABLET PO SCH (01:13)
[2024-05-22 02:49] VITALS: RESP 18; BMI 31.8
[2024-05-22] MEDS: CLOPIDOGREL BISULFATE 75 MG TABLET (FP) PO SCH (09:10)
[2024-05-22] MEDS: TRIAMTERENE AND HCTZ - 37.5 MG/25 MG CAPSULE PO SCH (09:11)
[2024-05-22] MEDS: ASPIRIN COATED 81 MG TABLET.EC PO SCH (09:11)
[2024-05-22] MEDS: LISINOPRIL 10 MG TABLET PO SCH (09:11)
[2024-05-22] MEDS: amLODIPine BESYLATE 5 MG TABLET (FP) PO SCH (09:11)
[2024-05-22] MEDS ORDERED: QUINAPRIL HCL 10 MG TABLET PO SCH (10:00)
[2024-05-22] MEDS ORDERED: DONEPEZIL HCL 5 MG TABLET (FP) PO SCH ×2 (10:00→22:00)
[2024-05-22] MEDS ORDERED: ASPIRIN 81 MG CHEWABLE TABLETS PO SCH (10:00)
[2024-05-22] MEDS ORDERED: CLOPIDOGREL BISULFATE 75 MG TABLET (FP) PO SCH (10:00)
[2024-05-22] MEDS ORDERED: ENOXAPARIN NA (PORCINE) 40 MG/0.4 ML DISP.SYRIN SQ SCH (10:00)
[2024-05-22] MEDS ORDERED: amLODIPine BESYLATE 10 MG TABLET (FP) PO SCH (10:00)
[2024-05-22] MEDS ORDERED: CEFTRIAXONE 1 GM in DEXTROSE 5%-WATER - 50 ML IVPB SCH (10:00)
[2024-05-22 11:42] LABS: HEMATOCRIT 42.1 % (32.4-45.2); MCH 27.9 pg (25.7-33.7); MCHC 33.1 g/dl (32.0-36.0); MEAN CELL VOLUME 84.1 fl (80-96); MEAN PLT VOLUME 8.9 fl (7.5-11.1); PLATELET COUNT 289 10^3/uL (134-434); RBC 5.01 M/mm3 (3.60-5.2); WHITE BLOOD COUNT 5.3 K/mm3 (4.0-10.0)
[2024-05-22] MEDS: VITAMIN E 400 INTERNATIONAL-UNITS CAPSULE (FP) PO SCH (11:45)
[2024-05-22 12:01] LABS: POTASSIUM 3.9 mmol/L (3.5-5.1)
[2024-05-22 12:03] LABS: CALCIUM 9.1 mg/dL (8.5-10.1)
[2024-05-22 12:04] LABS: BLOOD UREA NITROGEN 13.2 mg/dL (7-18)
[2024-05-22 12:07] LABS: CREATININE 0.7 mg/dL (0.55-1.3); PHOSPHOROUS 3.2 mg/dL (2.5-4.9)
[2024-05-22] MEDS: CYANOCOBALAMIN 1,000 MCG TABLET (FP) PO SCH (13:12)
[2024-05-22] MEDS: CEFTRIAXONE 1 GM in DEXTROSE 5%-WATER - 50 ML IVPB SCH (15:33)
[2024-05-22] MEDS: DONEPEZIL HCL 10 MG TABLET (FP) PO SCH (22:14)
[2024-05-22] MEDS: MIRTAZAPINE 15 MG TABLET (FP) PO SCH (22:14)
[2024-05-23] MEDS: amLODIPine BESYLATE 10 MG TABLET (FP) PO SCH (11:15)
[2024-05-23] MEDS: CEPHALEXIN MONOHYDRATE 500 MG CAPSULE (UD) PO SCH (21:51)
[2024-05-25 07:33] VITALS: PULSE 95
[2024-05-25 08:51] VITALS: BP 121/92; TEMP 98.8
[2024-05-25] MEDS ORDERED: MIRTAZAPINE 15 MG TABLET (FP) PO SCH (09:44)
== END 2024-05-25 14:08 | DRG 690 ==
LOC: JER 17:21 → JERBED 23:11 → J5S 05-22 02:00 → OBSVTOIN 05-22 14:40
PROVIDERS: ADMIT Internal Medicine; ATTEND Internal Medicine
DX: N39.0 Urinary tract infection, site not specified (principal); I50.32 Chronic diastolic (congestive) heart failure; I11.0 Hypertensive heart disease with heart failure; F03.90 Unspecified dementia, unspecified severity, without behavioral disturbance, psychotic disturbance, mood disturbance, and anxiety; B96.1 Klebsiella pneumoniae [K. pneumoniae] as the cause of diseases classified elsewhere
CPT/HCPCS: 0241U-QW; 36415; 70450-TC; 70551-TC; 71045-TC-FY; 80048; 80053; 81003; 82607; 83735; 84100; 84439; 84443; 84484; 85025; 85027; 87086; 87186; 93005; 93010; 97116-GP; 97161-GP; 99285-25; G0378

== ENCOUNTER 2024-12-16 13:26 | Inpatient (IN) | payer OTHER, BC ==
[2024-12-16 13:50] VITALS: RESP 18
[2024-12-16 15:49] LABS: BASO % 1.1 % (0-2.0); EOS % 2.9 % (0-4.5); HEMOGLOBIN 9.1 GM/dL (10.7-15.3); LYMPH % 17.6 % (8-40); MCH 23.5 pg (25.7-33.7); MCHC 31.5 g/dl (32.0-36.0); MEAN CELL VOLUME 74.6 fl (80-96); MEAN PLT VOLUME 8.3 fl (7.5-11.1); MONO % 7.1 % (3.8-10.2); NEUT % 71.3 % (42.8-82.8); PLATELET COUNT 496 10^3/uL (134-434); RBC 3.88 M/mm3 (3.60-5.2); RDW 18.6 % (11.6-15.6); WHITE BLOOD COUNT 8.4 K/mm3 (4.0-10.0)
[2024-12-16 15:56] LABS: INR 1.73 (0.83-1.09); PROTHROMBIN TIME (PATIENT) 18.9 SEC (9.7-13.0)
[2024-12-16 15:59] LABS: ACTIVATED PTT 29.2 SECONDS (25.2-36.5)
[2024-12-16 16:36] LABS: POTASSIUM 4.3 mmol/L (3.5-5.1)
[2024-12-16 16:38] LABS: CALCIUM 9.3 mg/dL (8.5-10.1)
[2024-12-16 16:39] LABS: BLOOD UREA NITROGEN 36.3 mg/dL (7-18)
[2024-12-16 16:42] LABS: CREATININE 1.3 mg/dL (0.55-1.3)
[2024-12-16 16:44] LABS: ALBUMIN 3.9 g/dl (3.4-5.0); BILIRUBIN,TOTAL 0.3 mg/dL (0.2-1); TOT PROT 7.6 g/dl (6.4-8.2)
[2024-12-16 19:37] LABS: EPI CELLS 31 /uL (0-25.1); HYALINE CASTS 5 /uL (0-3.1); URINE APPEARANCE CLEAR; URINE BACTERIA 37 /uL (0-1359); URINE BILIRUBIN NEGATIVE (NEGATIVE); URINE COLOR YELLOW; URINE GLUCOSE (UA) NEGATIVE (NEGATIVE); URINE KETONE NEGATIVE (NEGATIVE); URINE LEUK ESTERASE 2+ (NEGATIVE); URINE NITRITE NEGATIVE (NEGATIVE); URINE PROTEIN NEGATIVE (NEGATIVE); URINE RBC 33 /uL (0-23.9); URINE UROBILINOGEN 0.2 mg/dL (0.2-1.0); URINE WBC 465 /uL (0-25.8)
[2024-12-16] MEDS ORDERED: ACETAMINOPHEN 325 MG TABLET (FP) PO PRN (20:27)
[2024-12-16] MEDS: D5-1/2NS+10 MEQ KCL - 10 MEQ/1,000 ML INFUS.BAG IV SCH (20:45)
[2024-12-16] MEDS: PANTOPRAZOLE 40 MG TABLET PO SCH (20:53)
[2024-12-16 23:25] VITALS: BMI 31.8
[2024-12-17] MEDS: D5-1/2NS+10 MEQ KCL - 10 MEQ/1,000 ML INFUS.BAG IV SCH (02:00)
[2024-12-17] MEDS: CLOPIDOGREL BISULFATE 75 MG TABLET (FP) PO SCH (09:42)
[2024-12-17] MEDS: ASPIRIN COATED 81 MG TABLET.EC PO SCH (09:42)
[2024-12-17] MEDS: amLODIPine BESYLATE 10 MG TABLET (FP) PO SCH (09:42)
[2024-12-17] MEDS ORDERED: TRIAMTERENE AND HCTZ - 37.5 MG/25 MG CAPSULE PO SCH (10:00)
[2024-12-17 10:11] LABS: BASO % 1.3 % (0-2.0); EOS % 3.6 % (0-4.5); HEMATOCRIT 27.5 % (32.4-45.2); HEMOGLOBIN 8.6 GM/dL (10.7-15.3); LYMPH % 15.1 % (8-40); MCH 23.5 pg (25.7-33.7); MCHC 31.3 g/dl (32.0-36.0); MEAN PLT VOLUME 8.6 fl (7.5-11.1); MONO % 7.4 % (3.8-10.2); NEUT % 72.6 % (42.8-82.8); PLATELET COUNT 471 10^3/uL (134-434); RBC 3.67 M/mm3 (3.60-5.2); RDW 18.1 % (11.6-15.6); WHITE BLOOD COUNT 6.1 K/mm3 (4.0-10.0)
[2024-12-17 10:37] LABS: POTASSIUM 3.7 mmol/L (3.5-5.1)
[2024-12-17 10:38] LABS: CALCIUM 9.1 mg/dL (8.5-10.1)
[2024-12-17 10:42] LABS: CREATININE 1.1 mg/dL (0.55-1.3)
[2024-12-17] MEDS ORDERED: IRON SUCROSE INJECTION 300 MG in SODIUM CHLORIDE 235 ML IVPB ONE (11:00)
[2024-12-17] MEDS: IRON SUCROSE INJECTION 300 MG in SODIUM CHLORIDE 235 ML IVPB ONE (11:45)
[2024-12-18 09:19] LABS: EOS % 3.6 % (0-4.5); HEMATOCRIT 28.2 % (32.4-45.2); HEMOGLOBIN 8.9 GM/dL (10.7-15.3); MCH 23.5 pg (25.7-33.7); MCHC 31.6 g/dl (32.0-36.0); MEAN CELL VOLUME 74.3 fl (80-96); MONO % 6.6 % (3.8-10.2); NEUT % 71.8 % (42.8-82.8); PLATELET COUNT 418 10^3/uL (134-434); RDW 18.2 % (11.6-15.6); WHITE BLOOD COUNT 4.7 K/mm3 (4.0-10.0)
[2024-12-18 09:39] LABS: POTASSIUM 3.6 mmol/L (3.5-5.1)
[2024-12-18 09:40] LABS: CALCIUM 9.2 mg/dL (8.5-10.1)
[2024-12-18 09:41] LABS: MAGNESIUM 2.4 mg/dL (1.8-2.4)
[2024-12-18 09:44] LABS: CREATININE 0.9 mg/dL (0.55-1.3)
[2024-12-18] MEDS ORDERED: IRON SUCROSE INJECTION 300 MG in SODIUM CHLORIDE 235 ML IVPB ONE (10:36)
[2024-12-18] MEDS: IRON SUCROSE INJECTION 300 MG in SODIUM CHLORIDE 235 ML IVPB ONE (12:10)
[2024-12-18] MEDS: POLYETHYLENE GLYCOL (HEALTHYLAX) 3350 17 GM PACKET PO SCH (21:25)
[2024-12-19 08:59] LABS: BASO % 0.5 % (0-2.0); EOS % 1.8 % (0-4.5); HEMATOCRIT 27.8 % (32.4-45.2); HEMOGLOBIN 8.5 GM/dL (10.7-15.3); LYMPH % 11.9 % (8-40); MCHC 30.6 g/dl (32.0-36.0); MEAN CELL VOLUME 75.3 fl (80-96); MEAN PLT VOLUME 8.6 fl (7.5-11.1); MONO % 7.7 % (3.8-10.2); NEUT % 78.1 % (42.8-82.8); PLATELET COUNT 377 10^3/uL (134-434); RBC 3.69 M/mm3 (3.60-5.2); RDW 18.7 % (11.6-15.6); WHITE BLOOD COUNT 6.8 K/mm3 (4.0-10.0)
[2024-12-19 09:16] LABS: POTASSIUM 3.8 mmol/L (3.5-5.1)
[2024-12-19 09:21] LABS: BLOOD UREA NITROGEN 11.9 mg/dL (7-18)
[2024-12-19 09:23] LABS: CALCIUM 8.6 mg/dL (8.5-10.1)
[2024-12-19 09:24] LABS: CREATININE 0.8 mg/dL (0.55-1.3)
[2024-12-19] MEDS: IRON SUCROSE INJECTION 200 MG in SODIUM CHLORIDE 100 ML IVPB ONE (10:18)
[2024-12-19] MEDS: NITROFURANTOIN MACROCRYSTAL 50 MG CAPSULE (FP) PO SCH (17:21)
[2024-12-20 13:52] LABS: BASO % 0.1 % (0-2.0); EOS % 2.7 % (0-4.5); HEMOGLOBIN 9.4 GM/dL (10.7-15.3); LYMPH % 9.7 % (8-40); MCH 23.4 pg (25.7-33.7); MCHC 31.3 g/dl (32.0-36.0); MEAN CELL VOLUME 74.6 fl (80-96); MEAN PLT VOLUME 8.7 fl (7.5-11.1); NEUT % 80.5 % (42.8-82.8); PLATELET COUNT 418 10^3/uL (134-434); RBC 4.02 M/mm3 (3.60-5.2); WHITE BLOOD COUNT 7.8 K/mm3 (4.0-10.0)
[2024-12-20 14:20] LABS: CALCIUM 8.8 mg/dL (8.5-10.1)
[2024-12-20 14:21] LABS: BLOOD UREA NITROGEN 9.8 mg/dL (7-18)
[2024-12-20 14:25] LABS: CREATININE 0.7 mg/dL (0.55-1.3)
[2024-12-20 14:27] VITALS: BP 136/80; PULSE 96; TEMP 98.6
== END 2024-12-20 14:59 | disposition home or self-care (01) | DRG 641 ==
LOC: JER 13:26 → JERBED 19:49 → J5S 23:09
PROVIDERS: ADMIT Internal Medicine; ATTEND Internal Medicine
DX: E86.0 Dehydration (principal); N39.0 Urinary tract infection, site not specified; I50.32 Chronic diastolic (congestive) heart failure; F03.90 Unspecified dementia, unspecified severity, without behavioral disturbance, psychotic disturbance, mood disturbance, and anxiety; M62.81 Muscle weakness (generalized); R26.81 Unsteadiness on feet; D50.9 Iron deficiency anemia, unspecified; I11.0 Hypertensive heart disease with heart failure; I95.1 Orthostatic hypotension
CPT/HCPCS: 0241U-QW; 36415; 70450-TC; 71045-TC-FY; 74176-TC; 80048; 80053; 81003; 82728; 82977; 83540; 83550; 83735; 83880; 84484; 85025; 85610; 85730; 86850; 86900; 86901; 87086; 87186; 93005; 93010; 93970-TC; 97116-GP; 97161-GP; 99283-25; 99285-25; J1756; Q9963

== ENCOUNTER 2025-07-14 11:17 | Inpatient (IN) | payer OTHER, BC ==
[2025-07-14 12:59] LABS: ABSOLUTE IMMATURE GRANULOCYTES 0.04 x10^3/uL (0.0-0.031); BASOPHILS # 0.03 x10^3/uL (0.01-0.08); EOSINOPHIL % 0.1 % (0.7-5.8); EOSINOPHILS # 0.01 x10^3/uL (0.04-0.36); MCHC 30.0 g/dl (32.2-35.5); MEAN CELL VOLUME 85.0 fl (79.4-94.8); MEAN PLT VOLUME 10.9 fl (9.4-12.3); MONOCYTE # 0.60 x10^3/uL (0.24-0.86); MONOCYTE % 5.8 % (4.7-12.5); RDW 16.1 % (12.5-17.0)
[2025-07-14 13:21] LABS: GLUCOSE,RANDOM 103 mg/dL (74-106)
[2025-07-14 13:22] LABS: TOT PROT 9.3 g/dl (6.4-8.2)
[2025-07-14 13:23] LABS: CO2 23 mmol/L (21-32)
[2025-07-14 13:24] LABS: ALK PHOS 131 U/L (40-150)
[2025-07-14 13:27] LABS: CREATININE 0.48 mg/dL (0.55-1.3); SGOT/AST 69 U/L (5-34); SGPT/ALT 19 U/L (0-55)
[2025-07-14] MEDS ORDERED: ACETAMINOPHEN INJECTION 100 ML ONE (13:32)
[2025-07-14 13:35] LABS: URINE APPEARANCE CLOUDY; URINE BILIRUBIN NEGATIVE (NEGATIVE); URINE COLOR YELLOW; URINE GLUCOSE (UA) NEGATIVE (NEGATIVE); URINE KETONE NEGATIVE (NEGATIVE)
[2025-07-14 13:36] LABS: URINE LEUK ESTERASE 1+ (NEGATIVE); URINE NITRITE POSITIVE (NEGATIVE); URINE PROTEIN NEGATIVE (NEGATIVE); URINE UROBILINOGEN 0.2 mg/dL (0.2-1.0)
[2025-07-14] MEDS: ACETAMINOPHEN 1000 MG/100 ML BAG IVPB ONE (13:40)
[2025-07-14 13:48] LABS: HCV DIAGNOSTIC IN-HOUSE W/RFLX NON-REACTIVE (NONREACTIVE); HIV INTERPRETATION NEGATIVE (NEGATIVE)
[2025-07-14] MEDS ORDERED: ERTAPENEM SODIUM 1 GM VIAL ONE (14:11)
[2025-07-14] MEDS: ERTAPENEM SODIUM 1 GM in SODIUM CHLORIDE 50 ML IVPB ONE (14:14)
[2025-07-14 15:21] LABS: GLUCOSE,RANDOM 92.0 mg/dL (74-106)
[2025-07-14 15:23] LABS: CO2 20.0 mmol/L (21-32)
[2025-07-14 15:27] LABS: CREATININE 0.39 mg/dL (0.55-1.3)
[2025-07-14] MEDS ORDERED: ACETAMINOPHEN 325 MG TABLET (FP) PO PRN (16:04)
[2025-07-14] MEDS ORDERED: PANTOPRAZOLE SODIUM 40 MG VIAL ONE (16:47)
[2025-07-14] MEDS ORDERED: POTASSIUM CHLORIDE ORAL LIQUID 20 MEQ/15 ML ONE (16:47)
[2025-07-14] MEDS: PANTOPRAZOLE 40 MG TABLET PO SCH (16:49)
[2025-07-14] MEDS: POTASSIUM CHLORIDE ORAL LIQUID 20 MEQ/15 ML PO ONE (16:49)
[2025-07-14 18:44] VITALS: BMI 30.6
[2025-07-14] MEDS ORDERED: MELATONIN 5 MG TABLETS PO PRN (19:55)
[2025-07-14] MEDS: ATORVASTATIN CA 20 MG TABLET (FP) PO SCH (21:21)
[2025-07-14] MEDS: APIXABAN 5 MG TABLET PO SCH (21:21)
[2025-07-14] MEDS: DONEPEZIL HCL 10 MG TABLET (FP) PO SCH (21:21)
[2025-07-14] MEDS: MIRTAZAPINE 15 MG TABLET (FP) PO SCH (21:21)
[2025-07-14] MEDS: LIDOCAINE 5% TOPICAL PATCH TP SCH ×2 (21:34→21:35)
[2025-07-14] MEDS ORDERED: HEPARIN NA (PORCINE) 5,000 UNITS/ML 1ML VIAL SQ SCH (22:00)
[2025-07-15 08:52] VITALS: RESP 18
[2025-07-15] MEDS: amLODIPine BESYLATE 10 MG TABLET (FP) PO SCH (09:42)
[2025-07-15] MEDS: CYANOCOBALAMIN 1,000 MCG TABLET (FP) PO SCH (09:42)
[2025-07-15] MEDS: LISINOPRIL 10 MG TABLET PO SCH (09:42)
[2025-07-15] MEDS: LIDOCAINE PATCH REMOVAL MC SCH (09:59)
[2025-07-15] MEDS: ERTAPENEM SODIUM 0.5 GM in SODIUM CHLORIDE 50 ML IVPB SCH (16:39)
[2025-07-16 09:34] LABS: ABSOLUTE IMMATURE GRANULOCYTES 0.02 x10^3/uL (0.0-0.031); BASOPHILS # 0.02 x10^3/uL (0.01-0.08); EOSINOPHIL % 1.8 % (0.7-5.8); EOSINOPHILS # 0.10 x10^3/uL (0.04-0.36); MCHC 29.7 g/dl (32.2-35.5); MEAN CELL VOLUME 85.6 fl (79.4-94.8); MEAN PLT VOLUME 11.0 fl (9.4-12.3); MONOCYTE # 0.41 x10^3/uL (0.24-0.86); MONOCYTE % 7.3 % (4.7-12.5); RDW 15.9 % (12.5-17.0)
[2025-07-16 09:57] LABS: GLUCOSE,RANDOM 76.0 mg/dL (74-106)
[2025-07-16 09:58] LABS: CO2 27.0 mmol/L (21-32)
[2025-07-16 10:02] LABS: CREATININE 0.73 mg/dL (0.55-1.3)
[2025-07-16] MEDS: POTASSIUM CHLORIDE ORAL LIQUID 20 MEQ/15 ML PO ONE (18:18)
[2025-07-17 09:13] LABS: ABSOLUTE IMMATURE GRANULOCYTES 0.02 x10^3/uL (0.0-0.031); BASOPHILS # 0.04 x10^3/uL (0.01-0.08); EOSINOPHIL % 2.2 % (0.7-5.8); EOSINOPHILS # 0.13 x10^3/uL (0.04-0.36); MCHC 29.9 g/dl (32.2-35.5); MEAN CELL VOLUME 85.6 fl (79.4-94.8); MEAN PLT VOLUME 11.0 fl (9.4-12.3); MONOCYTE # 0.36 x10^3/uL (0.24-0.86); MONOCYTE % 6.0 % (4.7-12.5); RDW 16.0 % (12.5-17.0)
[2025-07-17] MEDS: CEFTRIAXONE 2 GM in DEXTROSE 5%-WATER 100 ML IVPB SCH (09:37)
[2025-07-17 09:40] LABS: GLUCOSE,RANDOM 89.0 mg/dL (74-106)
[2025-07-17 09:42] LABS: CO2 26.0 mmol/L (21-32)
[2025-07-17 09:46] LABS: CREATININE 0.76 mg/dL (0.55-1.3)
[2025-07-17] MEDS: MINERAL OIL ENEMA 133 ML ENEMA RC ONE (18:11)
[2025-07-17] MEDS: BISACODYL 10 MG SUPP.RECT PR ONE (18:11)
[2025-07-17] MEDS: POLYETHYLENE GLYCOL (HEALTHYLAX) 3350 17 GM PACKET PO SCH (18:11)
[2025-07-17] MEDS: DOCUSATE SODIUM 100 MG CAPSULE (FP) PO SCH (21:33)
[2025-07-18] MEDS: D5-1/2NS+20 MEQ KCL - 20 MEQ/1,000 ML INFUS.BAG IV SCH (06:45)
[2025-07-19] MEDS: CEFUROXIME AXETIL 250 MG TABLET PO SCH (09:21)
[2025-07-19 09:46] LABS: ABSOLUTE IMMATURE GRANULOCYTES 0.02 x10^3/uL (0.0-0.031); BASOPHILS # 0.02 x10^3/uL (0.01-0.08); EOSINOPHIL % 3.6 % (0.7-5.8); EOSINOPHILS # 0.17 x10^3/uL (0.04-0.36); MCHC 29.7 g/dl (32.2-35.5); MEAN CELL VOLUME 86.1 fl (79.4-94.8); MEAN PLT VOLUME 10.5 fl (9.4-12.3); MONOCYTE # 0.35 x10^3/uL (0.24-0.86); MONOCYTE % 7.4 % (4.7-12.5); RDW 15.9 % (12.5-17.0)
[2025-07-19 10:11] LABS: GLUCOSE,RANDOM 91.0 mg/dL (74-106)
[2025-07-19 10:13] LABS: CO2 24.0 mmol/L (21-32)
[2025-07-19 10:17] LABS: CREATININE 0.74 mg/dL (0.55-1.3)
[2025-07-21 10:27] VITALS: TEMP 97.7
[2025-07-21 16:02] VITALS: BP 133/76; PULSE 98
== END 2025-07-21 16:33 | disposition home or self-care (01) | DRG 690 ==
LOC: JER 11:17 → JERBED 14:04 → J5S 17:18
PROVIDERS: ADMIT Internal Medicine; ATTEND Internal Medicine
DX: N39.0 Urinary tract infection, site not specified (principal); I50.32 Chronic diastolic (congestive) heart failure; B96.1 Klebsiella pneumoniae [K. pneumoniae] as the cause of diseases classified elsewhere; B96.4 Proteus (mirabilis) (morganii) as the cause of diseases classified elsewhere; F03.90 Unspecified dementia, unspecified severity, without behavioral disturbance, psychotic disturbance, mood disturbance, and anxiety; I11.0 Hypertensive heart disease with heart failure; R26.81 Unsteadiness on feet; F41.8 Other specified anxiety disorders; M25.561 Pain in right knee; E87.6 Hypokalemia; W05.0XXA Fall from non-moving wheelchair, initial encounter; Y92.129 Unspecified place in nursing home as the place of occurrence of the external cause; Y99.9 Unspecified external cause status; Z86.73 Personal history of transient ischemic attack (TIA), and cerebral infarction without residual deficits; Z99.3 Dependence on wheelchair
CPT/HCPCS: 36415; 71045-TC-FY; 72170-TC-FY; 73502-TC-RT-FY; 73560-TC-RT-FY; 76882-TC-RT; 80048; 80053; 81003; 82550; 83735; 84484; 85025; 86140; 86803; 87040; 87077; 87086; 87389; 87637-QW; 93005; 93010; 97116-GP; 97161-GP; 99285-25